=== PATIENT | female | born 1980 | race Caucasian/White ===

== ENCOUNTER 2016-10-31 00:58 | Emergency (ER) | payer OTHER ==
[~2016-10-31] VITALS: Ht 175.3 cm; Wt 165.9 kg
[2016-10-31 01:01] VITALS: Ht 175.3 cm; Wt 165.9 kg
--- NOTE | 2016-10-31 02:29 | RADRPT ---
PROCEDURE: X-ray right knee CLINICAL INDICATION: Fall with blunt trauma to the right knee. TECHNIQUE: 3 views right knee. COMPARISON: None. FINDINGS: Small chip fracture at the posterior lateral aspect of the tibial plateau compatible with a Segond f racture. This is typically associated with soft tissue injuries at the posterolateral aspect of the right knee. MRI examination would be of further use. Otherwise, remaining osseous structures are without evident acute fracture or dislocation. Small karely int effusion, otherwise nonspecific. Soft tissues otherwise unremarkable. IMPRESSION: 1. Segond fracture of the posterior lateral tibial plateau. 2. This is typically associated with soft tissue injuries at the posterolateral aspect of the right knee. MRI examination would be of further use. 3. Otherwise, remaining osseous structures are without evident acute fracture. RPTAT: [facility] Physician Lawanda Date Time Electronically viewed and signed by Physician Lawanda on 10/31/2016 02:28 RS/
[2016-10-31] MEDS ORDERED: HYDROCODONE/APAP (7.5/325) TAB PO ONE (02:30)
--- NOTE | 2016-10-31 02:31 | RADRPT ---
PROCEDURE: Left ankle x-ray. CLINICAL INDICATION: Left ankle pain status post fall. TECHNIQUE: 3 views left ankle. COMPARISON: None. FINDINGS: Soft tissue swelling over the bilateral and anterior left ankle. No acute fracture or dislocation. Plantar and posterior dorsal calcaneal enthesophytes. IMPRESSION: Soft tissue swelling, without acute fracture. RPTAT: [facility] Physician Lawanda Date Time Electronically viewed and signed by Physician Lawanda on 10/31/2016 02:30 RS/
[2016-10-31] MEDS ORDERED: HYDR-906 PO (04:00)
[2016-10-31] MEDS ORDERED: NAPR-688 PO (04:00)
--- NOTE | 2016-10-31 04:10 | ERD ---
ER Documentation Chief Complaint Date/Time DATE: 10/31/16 TIME: 04:04 Chief Complaint BIBA [id number], right knee pain r/t slip & fall HPI This 28-year-old female is brought in by ambulance after she slipped in her shower and experienced left ankle pain and right knee pain. She has fractured her left ankle previously. She has not tried to walk since. No head trauma or other pain. ROS All systems reviewed and are negative except as per history of present illness. Medications Home Meds Active Scripts Naproxen* (Naproxen*) 500 Mg Tablet, 500 MG PO BID Y for PAIN, #30 TAB Prov:AHMET KHAN DO 10/31/16 Hydrocodone/Acetaminophen ([place] 5-325 Tablet) 1 Each Tablet, 1 EACH PO Q6, #30 TAB Prov:AHMET KHAN DO 10/31/16 PMhx/Soc Medical and Surgical Hx: pt denies Medical Hx, pt denies Surgical Hx History of Surgery: No Hx Neurological Disorder: No Hx Respiratory Disorders: No Hx Cardiac Disorders: No Hx Psychiatric Problems: No Hx Miscellaneous Medical Probl: No Hx Alcohol Use: No Hx Substance Use: No Hx Tobacco Use: No Smoking Status: Never smoker Physical Exam Vitals Vital Signs Date Time Temp Pulse Resp B/P Pulse Ox O2 Delivery O2 Flow Rate FiO2 10/31/16 01:43 97.9 95 18 168/84 97 Room Air 10/31/16 01:01 97.9 103 18 149/85 97 Physical Exam Const: [] Mild distress, morbidly obese Head: Atraumatic Neck: Full range of motion.. No midline tenderness . Skin: No petechiae or rashes, no lacerations or bleeding Back: No midline or flank tenderness Ext: No cyanosis, or edema Neur: Awake and alert and oriented 3, no focal deficits Results 24 hrs Current Medications Medications (Trade) Dose Ordered Sig/Luz Marina Route PRN Reason Start Time Stop Time Status Last Admin Dose Admin Acetaminophen/ Hydrocodone Bitart ([place] (7.5-325)) 1 tab ONCE ONCE PO 10/31/16 02:30 10/31/16 02:31 DC 10/31/16 02:36 Procedures/MDM Segond fracture meaning avulsion fracture of the tibial plateau indicating more likely indicating soft tissue injury. The contralateral leg patient has an ankle sprain. Knee immobilizer was placed on the right knee. Patient was given [place] for pain. Stated that she does not have any pain when she does not move the knee. Because of her contralateral injuries crutches are appropriate in this case. We have called an ambulance to provide patient transportation home as her is worried that he not be able to get her home and she is overweight and does have these injuries. Going to discharge her with [place], naproxen for pain. Spoke to the couple about orthopedic follow-up. Patient elle has an orthopedist from her previous ankle fracture. Instructed him to follow- up with this orthopedist for follow her primary care doctor for referral. I will suggest that she may be she get an MRI before this to look for soft tissue injury. ED splint application note, knee immobilizer to right knee. Emboli was fitted for a position of comfort and immobilization. Neurovascular assessment after this application revealed intact neurovascular as well as motor of the foot. No complications Left ankle x-ray interpretation: No acute fracture dislocation or foreign body. Right knee x-ray interpretation: Avulsion fracture of the posterior tibial plateau., No dislocation. Departure Diagnosis: Primary Impression: Ankle sprain Additional Impression: Avulsion fracture of tibial tuberosity Condition: Stable Patient Instructions: Treating Ankle Sprains, Fracture, Lower Extremity Additional Instructions: Call your primary care doctor TOMORROW for an appointment during the next 1-2 days to obtain a referral for an ORTHOPEDIST or see your orthopedist as soon as possible. You may want to get a referral for an MRI from your doctor first. See the doctor sooner or return here if your condition worsens before your appointment time. AHMET KHAN DO Oct 31, 2016 04:10
[2016-10-31] MEDS ORDERED: AMLO-147 PO (04:42)
[2016-10-31] MEDS ORDERED: NICARDipine HCL 30 MG CAPSULE PO ONE (05:00)
[2016-10-31 07:24] VITALS: BP 133/47; PULSE 105; RESP 18; TEMP 98
[2016-10-31] MEDS ORDERED: ONDANSETRON (ODT) 4 MG TAB ODT STA (07:33)
[2016-10-31] MEDS ORDERED: HYDROCODONE/APAP (10/325) TAB PO ONE (08:00)
== END 2016-10-31 08:22 | disposition home or self-care (01) ==
LOC: E/R 00:58
DX: S93.401A Sprain of unspecified ligament of right ankle, initial encounter (principal); S82.151A Displaced fracture of right tibial tuberosity, initial encounter for closed fracture; W01.0XXA Fall on same level from slipping, tripping and stumbling without subsequent striking against object, initial encounter; Y92.9 Unspecified place or not applicable
CPT/HCPCS: 29505; 73562; 73610; Z7610